=== PATIENT | female | born 1955 | race Caucasian/White ===

== ENCOUNTER → 2018-03-16 | Outpatient (CLI) | payer MEDICARE, MEDICAID ==
[~2018-03-16] MED LIST: ASPI-496 PO; CARV6.252 PO; CYCL-259 PO; GABA300C10 PO; GABA600T2 PO; MORP-52 PO; OXYC-307 PO; OXYC5TAB3 PO; RIVA10TA PO; RIVA20TA PO; TRAM50TA2 PO
[2018-03-16 12:59] LABS: BASOPHILS # (AUTO) 0.04 x10^3/uL (0-0.1); BASOPHILS % (AUTO) 0 % (0-1); EOSINOPHILS # (AUTO) 0.27 x10^3/uL (0-0.4); EOSINOPHILS % (AUTO) 3 % (1-7); LYMPHOCYTES # (AUTO) 2.96 x10^3/uL (1-3.4); LYMPHOCYTES % (AUTO) 30 % (22-44); MD NO; MEAN CORPUSCULAR HEMOGLOBIN 33.2 pg (27.0-34.8); MEAN CORPUSCULAR HGB CONC 34.6 g/dL (32.4-35.8); MEAN CORPUSCULAR VOLUME 96.1 fL (80-100); MEAN PLATELET VOLUME 9.3 fL (7.4-10.4); MONOCYTES # (AUTO) 0.51 x10^3/uL (0.2-0.8); MONOCYTES % (AUTO) 5 % (2-9); NEUTROPHILS # (AUTO) 6.26 x10^3/uL (1.8-6.8); NEUTROPHILS % (AUTO) 62 % (42-75); PLATELET COUNT 280 x10^3/uL (130-400); RED BLOOD COUNT 4.73 x10^6/uL (3.82-5.3); RED CELL DISTRIBUTION WIDTH 12.9 % (9.6-15.2)
[2018-03-16 13:09] LABS: ALANINE AMINOTRANSFERASE 42 U/L (12-78); ALBUMIN 4.1 g/dL (3.4-5.0); ANION GAP 6 mmol/L (5-15); CHLORIDE 107 mmol/L (98-107); CREATININE 0.55 mg/dL (0.55-1.02); INTERNATIONAL NORMALIZED RATIO 1.01 (0.93-1.1); PROTHROMBIN TIME 10.5 Seconds (9.6-11.5)
[2018-03-16 13:12] LABS: ALKALINE PHOSPHATASE 86 U/L (45-117); BILIRUBIN,TOTAL 0.6 mg/dL (0.2-1.0); TOTAL PROTEIN 7.6 g/dL (6.4-8.2)
[2018-03-16 13:26] LABS: HEMOGLOBIN A1C 5.4 % (4.2-6.3)
== END | disposition home or self-care (01) ==
LOC: STAR 11:40
PROVIDERS: ATTEND Orthopaedic Surgery
DX: Z01.818 Encounter for other preprocedural examination (principal); M16.11 Unilateral primary osteoarthritis, right hip
CPT/HCPCS: 36415; 80053; 83036; 85025; 85610; 85730; 87081; 93005

== ENCOUNTER 2018-03-23 06:32 | Inpatient (IN) | payer MEDICARE, MEDICAID ==
[~2018-03-23] VITALS: Ht 157.5 cm; Wt 84.7 kg
[~2018-03-23 06:32] MED LIST changes: +EPINEPHRINE 1 MG/ML, 1ML ONE; -GABA600T2 PO; +KETOROLAC 60 MG/2 ML ONE; -OXYC5TAB3 PO; -RIVA10TA PO; +ROPIvacaine/PF 0.5%, 30 ML ONE; +SODIUM CHLORIDE 0.9% 100 ML ONE; -TRAM50TA2 PO; +TRANEXAMIC ACID 100 MG/ML, 10ML ONE; +VANCOMYCIN 1,000 MG ONE
[2018-03-23] MEDS ORDERED: CEFAZOLIN 1,000 MG ONE ×2 (07:06)
[2018-03-23] MEDS ORDERED: PROPOFOL 10 MG/ML, 20ML ONE (07:06)
[2018-03-23] MEDS ORDERED: SUCCINYLCHOLINE 20 MG/ML, 10ML ONE (07:06)
[2018-03-23] MEDS ORDERED: MIDAZOLAM 1 MG/ML, 2ML ONE (07:06)
[2018-03-23] MEDS ORDERED: FENTANYL PF 100 MCG/2ML ONE ×2 (07:06→08:25)
[2018-03-23] MEDS ORDERED: DEXAMETHASONE 4 MG/ML, 1ML ONE ×2 (07:06)
[2018-03-23 07:09] VITALS: BP 146/92
[2018-03-23] MEDS ORDERED: LACTATED RINGERS 1,000 ML IV SCH (07:19)
[2018-03-23] MEDS ORDERED: ACETAMINOPHEN 500 MG TABLET PO ONE (07:30)
[2018-03-23] MEDS ORDERED: GABAPENTIN 300 MG CAPSULE PO ONE ×2 (07:30→08:00)
[2018-03-23] MEDS ORDERED: BISACODYL 10 MG SUPP PR PRN (08:00)
[2018-03-23] MEDS ORDERED: SCOPOLAMINE PATCH, 1.5MG PATCH.TD72 TD ONE (08:00)
[2018-03-23] MEDS ORDERED: HYDROcodone/APAP 5/325 TABLET PO PRN (08:00)
[2018-03-23] MEDS ORDERED: DIPHENHYDRAMINE 50 MG CAPSULE PO PRN (08:00)
[2018-03-23] MEDS ORDERED: SENNA/DOCUSATE TABLET PO PRN (08:00)
[2018-03-23] MEDS ORDERED: ZOLPIDEM 5MG TABLET PO PRN (08:00)
[2018-03-23] MEDS ORDERED: MAGNESIUM HYDROXIDE 8%, 30ML UDC PO PRN (08:00)
[2018-03-23] MEDS ORDERED: ONDANSETRON 4 MG TABLET PO PRN (08:00)
[2018-03-23] MEDS ORDERED: ONDANSETRON 2MG/ML, 2ML IV PRN (08:00)
[2018-03-23] MEDS ORDERED: FENTANYL PF 100 MCG/2ML IV PRN (09:00)
[2018-03-23] MEDS ORDERED: MORPHINE SULFATE 4 MG/ML, 1ML IVPush PRN (09:00)
[2018-03-23] MEDS ORDERED: METOPROLOL 1 MG/ML, 5ML IV PRN (09:00)
[2018-03-23] MEDS ORDERED: LORazepam 2 MG/ML, 1ML IVPush PRN (09:00)
[2018-03-23] MEDS ORDERED: LABETALOL 5MG/ML, 20ML IV PRN (09:00)
[2018-03-23] MEDS ORDERED: hydrALAzine 20 MG/ML, 1ML IV PRN (09:00)
[2018-03-23] MEDS ORDERED: ONDANSETRON 2MG/ML, 2ML ONE (09:00)
[2018-03-23] MEDS ORDERED: MEPERIDINE/PF 25MG/0.5ML IVPush PRN (09:00)
[2018-03-23] MEDS ORDERED: ALBUTEROL/IPRATROPIUM 2.5MG/0.5MG, 3 ML NPPB PRN (09:00)
[2018-03-23] MEDS ORDERED: SCOPOLAMINE PATCH, 1.5MG PATCH.TD72 TD PRN (09:00)
[2018-03-23] MEDS ORDERED: EPHEDRINE 50 MG/ML, 1ML IVPush PRN (09:00)
[2018-03-23] MEDS ORDERED: OXYcodone 5 MG/5 ML ORAL.SOL UDC PO PRN (09:00)
[2018-03-23] MEDS: DOCUSATE 100 MG CAPSULE PO SCH ×2 (09:00→20:15)
[2018-03-23] MEDS ORDERED: METOCLOPRAMIDE 5 MG/ML, 2ML IV PRN (09:00)
[2018-03-23] MEDS ORDERED: ACETAMINOPHEN 650 MG/20.3 ML UDC ONE (09:34)
[2018-03-23] MEDS ORDERED: HYDROmorphone 2 MG/ML, 1ML ONE ×2 (09:35→09:59)
[2018-03-23] MEDS ORDERED: OXYcodone 5 MG/5 ML ORAL.SOL UDC ONE (09:35)
[2018-03-23] MEDS: ACETAMINOPHEN 650 MG/20.3 ML UDC PO PRN ×2 (09:37→15:50)
[2018-03-23] MEDS: HYDROmorphone 1 MG/ML, 1ML IV PRN ×7 (09:39→10:40)
[2018-03-23] MEDS: DIAZEPAM 5 MG/ML, 2ML IVPush PRN ×2 (09:43→10:09)
[2018-03-23 11:15] VITALS: BP 130/72
[2018-03-23] MEDS: NS + 20MEQ KCL 1,000 ML IV SCH (12:05)
[2018-03-23 14:06] VITALS: BP 98/53
[2018-03-23 15:16] VITALS: BP 127/71
[2018-03-23] MEDS: OXYcodone IR 5MG TABLET PO PRN ×3 (15:50→22:34)
[2018-03-23] MEDS ORDERED: CEFAZOLIN PMX 2GM/50ML 50 ML IVPB SCH (16:00)
[2018-03-23] MEDS: RIVAROXABAN 10 MG TABLET PO SCH (17:21)
[2018-03-23] MEDS ORDERED: GABAPENTIN 300 MG CAPSULE PO PRN (18:00)
[2018-03-23] MEDS: ASPIRIN 81 MG TABLET EC PO SCH (18:02)
[2018-03-23 18:44] VITALS: BP 132/83
[2018-03-23] MEDS ORDERED: CYCLOBENZAPRINE 10 MG TABLET ONE (19:38)
[2018-03-23] MEDS: CYCLOBENZAPRINE 10 MG TABLET PO SCH (20:09)
[2018-03-23] MEDS: CARVEDILOL 6.25 MG TABLET PO SCH (20:15)
[2018-03-24] MEDS ORDERED: CEFAZOLIN 2,000 MG in SODIUM CHLORIDE 0.9% 50 ML IVPB SCH
[2018-03-24 00:07] VITALS: BP 130/83
[2018-03-24] MEDS: NS + 20MEQ KCL 1,000 ML IV SCH ×2 (02:13→12:34)
[2018-03-24 04:25] VITALS: BP 145/87
[2018-03-24] MEDS ORDERED: DEXAMETHASONE 4 MG/ML, 1ML IVPush SCH (06:00)
[2018-03-24] MEDS: OXYcodone IR 5MG TABLET PO PRN ×5 (06:29→21:50)
[2018-03-24] MEDS: ASPIRIN 81 MG TABLET EC PO SCH ×2 (06:29→17:51)
[2018-03-24 06:53] LABS: TROPONIN I < 0.015 ng/mL (0.000-0.045)
[2018-03-24] MEDS: CYCLOBENZAPRINE 10 MG TABLET PO SCH (09:26)
[2018-03-24] MEDS: DOCUSATE 100 MG CAPSULE PO SCH ×2 (09:26→21:51)
[2018-03-24 09:36] VITALS: BP 159/86
[2018-03-24] MEDS: GABAPENTIN 300 MG CAPSULE PO PRN ×2 (10:37→20:30)
[2018-03-24 16:41] VITALS: BP 112/77
[2018-03-24] MEDS: RIVAROXABAN 10 MG TABLET PO SCH (16:43)
[2018-03-24] MEDS ORDERED: OXYcodone IR 5MG TABLET ONE (17:40)
[2018-03-24 19:11] VITALS: BP 103/70
[2018-03-24] MEDS: CARVEDILOL 6.25 MG TABLET PO SCH (21:50)
[2018-03-25] MEDS: NS + 20MEQ KCL 1,000 ML IV SCH (01:00)
[2018-03-25 03:05] VITALS: BP 111/72
[2018-03-25] MEDS: OXYcodone IR 5MG TABLET PO PRN ×3 (03:34→12:35)
[2018-03-25] MEDS: GABAPENTIN 300 MG CAPSULE PO PRN (06:59)
[2018-03-25] MEDS: ASPIRIN 81 MG TABLET EC PO SCH (07:00)
[2018-03-25 07:38] VITALS: BP 121/86
[2018-03-25] MEDS: CYCLOBENZAPRINE 10 MG TABLET PO SCH (08:46)
[2018-03-25] MEDS: DOCUSATE 100 MG CAPSULE PO SCH (08:46)
[2018-03-25] MEDS ORDERED: GABA600T2 PO (10:21)
[2018-03-25] MEDS ORDERED: RIVA10TA PO (10:22)
[2018-03-25] MEDS ORDERED: TRAM50TA2 PO (10:23)
[2018-03-25] MEDS ORDERED: MORP-52 PO (10:23)
[2018-03-25] MEDS ORDERED: OXYC5TAB3 PO (10:24)
== END 2018-03-25 13:35 | disposition home or self-care (01) | DRG 470 ==
LOC: ORIP 06:32 → 4NOR 11:14
PROVIDERS: ADMIT Orthopaedic Surgery; ATTEND Orthopaedic Surgery
PROC: 0SUA09Z Supplement Right Hip Joint, Acetabular Surface with Liner, Open Approach (ICD-10-PCS; 2018-03-23)
PROC: 0SR902A Replacement of Right Hip Joint with Metal on Polyethylene Synthetic Substitute, Uncemented, Open Approach (ICD-10-PCS; principal; 2018-03-23 08:45)
DX: M16.11 Unilateral primary osteoarthritis, right hip (principal); I10 Essential (primary) hypertension; Z91.048 Other nonmedicinal substance allergy status
CPT/HCPCS: 36415; 71045; 72170; 76000; 84484; 85014; 85018; 93005; C1713; G0378; J0171; J0690; J1100; J1170; J1885; J2250; J2405; J2704; J2795; J3010; J3360; J3370; J3480; C1776; J0330; J7120